=== PATIENT | male | born 1955 | race Caucasian/White ===

== ENCOUNTER 2016-08-15 09:46 | Emergency (ER) | payer OTHER ==
[2016-08-15] MEDS ORDERED: [UNRECOGNIZED DRUG - OTHER] PO ONE ×2 (11:14)
[2016-08-15] MEDS ORDERED: LAMIVUDINE PO ONE ×2 (11:14)
[2016-08-15] MEDS ORDERED: RITONAVIR PO ONE ×2 (11:14)
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
[2016-08-15 11:53] VITALS: BP 156/90; PULSE 88; RESP 18; TEMP 98.1
[2016-08-15 12:44] LABS: Hepatitis B Surface Ag Index 0.08
[2016-08-15 13:01] LABS: Hepatitis C Virus IgG Index 0.05
[2016-08-15 13:05] LABS: Hepatitis C Virus IgG Ab Negative (Negative)
[2016-08-16 07:38] LABS: HIV-1/HIV-2 Ab Screen NONREAC (NON REAC)
== END 2016-08-15 11:53 | disposition home or self-care (01) ==
LOC: EC 09:46
DX: Z77.21 Contact with and (suspected) exposure to potentially hazardous body fluids (principal); Z20.6 Contact with and (suspected) exposure to human immunodeficiency virus [HIV]; Y92.149 Unspecified place in prison as the place of occurrence of the external cause; Y99.0 Civilian activity done for income or pay; Z79.899 Other long term (current) drug therapy
CPT/HCPCS: 36415; 86803; 87340; 87389; 99282